=== PATIENT | female | born 1950 | race Caucasian/White ===

== ENCOUNTER 2017-03-21 16:18 | Emergency (ER) | payer OTHER, MEDICARE ==
[2017-03-21 17:29] VITALS: TEMP 98.2
[2017-03-21 17:37] LABS: BASOPHILS % (AUTO) 0 % (0-3); EOSINOPHILS % (AUTO) 2 % (0-9); HEMATOCRIT 42 % (35-47); MEAN CORPUSCULAR HGB CONC 33.1 gm/dl (32.0-36.0); MEAN CORPUSCULAR VOLUME 85 fL (81-99); MONOCYTES % (AUTO) 5.5 % (0-12)
[2017-03-21 17:51] LABS: ALBUMIN 3.6 gm/dl (3.4-5.0); CALCIUM 8.6 mg/dl (8.5-10.1); POTASSIUM 4.4 mMol/L (3.5-5.1)
[2017-03-21] MEDS ORDERED: ALBUTEROL/IPRATROPIUM 1 VIAL SOL INH ONE (18:02)
[2017-03-21] MEDS ORDERED: ALBUTEROL/IPRATROPIUM 1 VIAL SOL ONE (18:04)
[2017-03-21] MEDS ORDERED: AZITHROMYCIN 250 MG TAB PO ONE (19:45)
[2017-03-21] MEDS ORDERED: PREDNISONE 20 MG TAB PO ONE (19:45)
[2017-03-21] MEDS ORDERED: AZITHROMYCIN 250 MG TAB ONE (19:46)
[2017-03-21] MEDS ORDERED: PREDNISONE 20 MG TAB ONE (19:46)
[2017-03-21] MEDS ORDERED: METOPROLOL TARTRATE 25 MG TAB ONE (20:06)
[2017-03-21 22:16] VITALS: BP 170/88; PULSE 85; RESP 14; O2SAT 92
[2017-03-22] MEDS ORDERED: METOPROLOL SUCCINATE 50 MG ER TAB PO SCH (09:00)
== END 2017-03-21 22:05 | disposition home or self-care (01) ==
LOC: ED 16:18
DX: J20.9 Acute bronchitis, unspecified (principal)
CPT/HCPCS: 36415; 71020; 71275; 80053; 83880; 85025; 85378; 87804; 99285; J7620; Q9967

== ENCOUNTER 2018-11-11 07:22 | Emergency (ER) | payer OTHER, MEDICARE ==
[2018-11-11 07:51] VITALS: TEMP 97.7
[2018-11-11] MEDS ORDERED: LIDOCAINE HCL 2% GEL TOP PRN (07:51)
[2018-11-11] MEDS ORDERED: CLONIDINE 0.1 MG TAB PO ONE (08:03)
[2018-11-11] MEDS ORDERED: LIDOCAINE HCL 2% GEL TOP ONE (08:08)
[2018-11-11] MEDS ORDERED: ACETAMINOPHEN 500 MG 500 MG TAB ONE (08:08)
[2018-11-11] MEDS ORDERED: ACETAMINOPHEN 500 MG 500 MG TAB PO ONE (08:10)
[2018-11-11 08:28] LABS: BASOPHILS % (AUTO) 1 % (0-3); EOSINOPHILS % (AUTO) 5 % (0-9); HEMATOCRIT 38 % (35-47); HEMOGLOBIN 11.9 gm/dl (12.0-15.5); LYMPHOCYTES % (AUTO) 18.5 % (10-50); MEAN CORPUSCULAR HEMOGLOBIN 25.9 pg (27.0-32.0); MEAN CORPUSCULAR VOLUME 84 fL (81-99); MONOCYTES % (AUTO) 7.1 % (0-12); NEUTROPHILS % (AUTO) 68.6 % (37-80)
[2018-11-11 08:36] LABS: ALBUMIN 3.5 gm/dl (3.4-5.0); ALKALINE PHOSPHATASE 140 IU/L (46-116); ALT 21 IU/L (14-63); AST 18 IU/L (15-37); BILIRUBIN,TOTAL 0.6 mg/dl (0.2-1.0); BLOOD UREA NITROGEN 12 mg/dl (7-18); CALCIUM 8.2 mg/dl (8.5-10.1); CHLORIDE 108 mMol/L (98-107); CREATININE 0.68 mg/dl (0.60-1.00); GLUCOSE 110 mg/dl (74-106); TOTAL PROTEIN 6.8 gm/dl (6.4-8.2); TROP I < 0.017 ng/ml (0.000-0.056)
[2018-11-11 09:17] VITALS: BP 162/92
[2018-11-11 09:40] VITALS: PULSE 97; RESP 18; O2SAT 97
== END 2018-11-11 09:40 | disposition home or self-care (01) ==
LOC: ED 07:22
DX: I16.0 Hypertensive urgency (principal); K64.9 Unspecified hemorrhoids; E66.01 Morbid (severe) obesity due to excess calories
CPT/HCPCS: 36415; 80053; 84484; 85025; 93005; 99283; A9270-GY